=== PATIENT | female | born 1995 | race Caucasian/White ===

== ENCOUNTER 2024-07-25 06:12 | Day surgery (SDC) | payer BC, SELFPAY ==
[2024-07-25 06:09] VITALS: BMI 27.0
[2024-07-25 06:20] VITALS: BP 117/83; BMI 27.0
[2024-07-25] MEDS: VANCOCIN 200 IV (06:39)
[2024-07-25] MEDS: CELEBREX 200 MG PO (06:42)
[2024-07-25] MEDS: TYLENOL 1000 MG PO (06:42)
[2024-07-25] MEDS: NORMOSOL-R/PLASMALYTE-A 1000 IV (06:42)
[2024-07-25 09:00] VITALS: BP 117/83; BP 125/90
[2024-07-25 09:15] VITALS: BP 125/76
[2024-07-25 09:25] VITALS: BP 120/78
[2024-07-25 09:35] VITALS: BP 112/70
[2024-07-25 10:05] VITALS: BP 112/76
== END 2024-07-25 10:30 | disposition home or self-care (01) ==
LOC: SDS 06:12
PROVIDERS: ATTENDING PHYSICIAN Student in an Organized Health Care Education/Training Program
DX: M20.12 Hallux valgus (acquired), left foot (principal); M20.11 Hallux valgus (acquired), right foot
CPT/HCPCS: 28297; C1713